=== PATIENT | male | born 1995 | race Caucasian/White ===

== ENCOUNTER 2019-09-13 14:45 | Emergency (ER) | payer OTHER, SELFPAY ==
[2019-09-13 15:07] VITALS: BP 124/78; PULSE 76; RESP 16; TEMP 36.6; O2SAT 98
--- NOTE | 2019-09-13 15:13 | ED.LOWEXIN ---
HPI - Extremity Injury (Lower) General Chief Complaint: Extremity Injury, Lower Stated Complaint: possible infected left great toe Time Seen by Provider: 09/13/19 15:14 Source: patient Mode of arrival: ambulatory Limitations: no limitations History of Present Illness HPI Narrative: Royal Helton is a 24 yo male with no PMH who is here with L great toe swelling to toe 3 days Related Data Allergies Allergy/AdvReac Type Severity Reaction Status Date / Time trimethoprim Allergy Unknown Verified 12/25/14 11:02 POLYTRIM EYE DROPS Allergy Uncoded 02/06/11 14:29 Review of Systems Review of Systems: Narrative: CONSTITUTIONAL: Denies fever, chills, sweats. EYES: Denies visual changes, redness, discharge. ENT: Denies rhinorrhea, congestion, sore throat, otalgia. CARDIOVASCULAR: Denies chest pain, palpitations, edema. RESPIRATORY: Denies dyspnea, wheezing, cough GASTROINTESTINAL: Denies abdominal pain, nausea, vomiting, diarrhea. GENITOURINARY: Denies dysuria, hematuria, abnormal discharge SKIN: Denies rash or itching. NEUROLOGIC: Denies numbness, or focal weakness. PSYCHIATRIC: Denies anxiety or depression. Great toe pain on left medial side, stubbed her toe and pulled loose skin, now is going PMFSH Family History Family History Other Diabetes mellitus High cholesterol Hypertension Social History Social History Smoking status: Never smoker Alcohol intake: current Comments At time of signature, I agree with nursing past medical, surgical, social and family history. There is no relevant family history pertinent to the presenting complaint. Exam Narrative: Exam Narrative: GENERAL: This is a well-nourished, well-developed patient, in mild distress. HEAD: normocephalic, atraumatic. EYES: Sclera clear/white. Vision is grossly intact. EARS: External ears normal, Hearing grossly intact. NOSE: External nose normal without nasal discharge, nares without redness, no rhinorrhea. THROAT: Mucous membranes moist, NECK: Neck supple, CARDIOVASCULAR: Regular rate and rhythm without murmurs, gallops, or rubs. RESPIRATORY: Clear to auscultation. Breath sounds equal bilaterally. No wheezes, rales, or rhonchi. GASTROINTESTINAL: Abdomen soft, SKIN: warm, intact with no suspicious lesions or rash, good texture and turgor. NEURO: awake, alert, and oriented to person, place and time. There were no obvious focal neurologic abnormalities. Steady gait EXTREMITIES: Normal range of motion. L great toe medial swelling, good cloration, tender to touch, no fluctuance BACK: Nontender without deformity Course Course Emergency Course: Start antibiotics and hydrocortisone cream Vital Signs Vital signs: Vital Signs Temperature 97.9 F 09/13/19 15:07 Pulse Rate 76 09/13/19 15:07 Respiratory Rate 16 09/13/19 15:07 Blood Pressure 124/78 09/13/19 15:07 Pulse Oximetry 98 09/13/19 15:07 Temperature 97.9 F 09/13/19 15:07 Pulse Rate 76 09/13/19 15:07 Respiratory Rate 16 09/13/19 15:07 Blood Pressure 124/78 09/13/19 15:07 Pulse Oximetry 98 09/13/19 15:07 MDM - Extremity Injury (Lower) Differential Diagnosis Differential diagnosis: Likely fracture of toe and other (Paronychia versus mild infection along toe) Discharge Plan Discharge Clinical Impression: Cellulitis of great toe of left foot Patient Disposition: Home, Self-Care Condition: Stable Instructions: Antibiotic Form, Paronychia (ED), Cellulitis (DC) Prescriptions: New cephalexin [Keflex] 500 mg capsule 500 mg PO Q8H Qty: 30 RF: 0 hydrocortisone 1 % cream 1 applic TOPICAL TID PRN (Reason: skin irritation) Qty: 14.2 RF: 0 Follow-up/Referrals: PHYSICIAN,SENIOR FINANCIAL ACCOUNTANT [Primary Care Provider] - Stand Alone Forms: Work/School Release IP Time of Disposition: 15:29 Discharge Date/Time: 09/13/19 15:33
== END 2019-09-13 15:33 | disposition home or self-care (01) ==
PROVIDERS: Emergency Provider Nurse Practitioner
DX: L03.032 Cellulitis of left toe (principal)
CPT/HCPCS: 99213; G0463

== ENCOUNTER 2020-05-06 14:48 | Emergency (ER) | payer OTHER, SELFPAY ==
[2020-05-06 15:06] VITALS: BP 134/77; PULSE 97; RESP 20; TEMP 37.2; O2SAT 100
--- NOTE | 2020-05-06 15:26 | ED.EAR ---
HPI - Ear Problem General Chief complaint: Ear Stated complaint: Ear ache Source: patient and RN notes reviewed Mode of arrival: ambulatory Limitations: no limitations History of Present Illness HPI Narrative: This is a 25-year-old white male who presented today with complaints of left ear pain patient also complains of generalized body aches with nasal decongestion that he has been experience for the last 4 days he did not take anything at home for symptoms. Today he did test positive for Covid patient was informed that he needs to remain quarantined for 10 days and anybody that has come in contact with him also needs to remain quarantine. The patient denies SOB, CP, palpitation, extremity numbness, lightheadedness, dizziness, constipation, diarrhea, chills, or fever. Patient will be treated for otitis media he will treat his Covid symptoms with [id number] cold medication Related Data Allergies Allergy/AdvReac Type Severity Reaction Status Date / Time trimethoprim Allergy Unknown Verified 12/25/14 11:02 POLYTRIM EYE DROPS Allergy Swelling Uncoded 05/06/20 15:03 Review of Systems Review of Systems: All systems reviewed & are unremarkable except as noted in HPI and below PMFSH Family History Family History Other Diabetes mellitus High cholesterol Hypertension Social History Social History Smoking status: Never smoker Alcohol intake: current Gender identity (if verbalized by the patient): Male Exam Narrative: Exam Narrative: GENERAL: This is a well-nourished, well-developed patient, in no apparent distress. HEAD: normocephalic, atraumatic. EYES: PERRL. Sclera clear/white. Vision is grossly intact. EARS: External ears normal, auditory canals edematous with erythema and without drainage, TMs cloudy without perforation. Hearing grossly intact. NOSE: External nose normal with no obvious nasal discharge, nares without redness, no rhinorrhea. THROAT: Mucous membranes moist, posterior pharynx clear. NECK: Neck supple, non-tender without lymphadenopathy, masses or thyromegaly. CARDIOVASCULAR: Regular rate and rhythm without murmurs, gallops, or rubs. RESPIRATORY: Clear to auscultation. Breath sounds equal bilaterally. No wheezes, rales, or rhonchi. GASTROINTESTINAL: Abdomen soft, non-tender, nondistended. Bowel sounds are active. No hepato-splenomegaly, or palpable masses. No guarding. SKIN: warm, intact with no suspicious lesions or rash, good texture and turgor. NEURO: awake, alert, and oriented to person, place and time. There were no obvious focal neurologic abnormalities. Steady gait EXTREMITIES: Normal range of motion. No edema. No calf tenderness. Negative Homans sign bilaterally. BACK: Nontender without deformity or crepitance. No flank tenderness. Course Course Emergency Course: Patient discharged with amoxicillin and instructed to stay quarantined due to a positive Covid also instructed to inform anyone that he came in contact with that they need to remain quarantine as well. And there is no need for them to be tested. They will still need to remain quarantine for 10 days Vital Signs Vital signs: Vital Signs Temperature 98.9 F 05/06/20 15:06 Pulse Rate 97 05/06/20 15:06 Respiratory Rate 20 05/06/20 15:06 Blood Pressure 134/77 05/06/20 15:06 Pulse Oximetry 100 05/06/20 15:06 Temperature 98.9 F 05/06/20 15:06 Pulse Rate 97 05/06/20 15:06 Respiratory Rate 20 05/06/20 15:06 Blood Pressure 134/77 05/06/20 15:06 Pulse Oximetry 100 05/06/20 15:06 Medical Decision Making Differential Diagnosis Differential Diagnosis: Covid versus otitis media versus Vital Signs Vital Signs: Vital Signs Temperature 98.9 F 05/06/20 15:06 Pulse Rate 97 05/06/20 15:06 Respiratory Rate 05/06/20 15:06 Blood Pressure 134/77 05/06/20 15:06 Pulse Oximetry 10
== END 2020-05-06 15:28 | disposition home or self-care (01) ==
PROVIDERS: Emergency Provider Nurse Practitioner
DX: U07.1 COVID-19 (principal); H66.90 Otitis media, unspecified, unspecified ear
CPT/HCPCS: 87081; 87426; 87880; 99213; C9803; G0463

== ENCOUNTER 2025-02-06 12:48 | Emergency (ER) | payer BC, SELFPAY ==
[2025-02-06 12:52] VITALS: BP 152/72; PULSE 62; RESP 17; TEMP 36.2; O2SAT 100
--- NOTE | 2025-02-06 14:41 | ED.GENADULT ---
HPI - General Adult General Chief complaint: Unspecified Stated complaint: Stung by yellow jackets x6- Time Seen by Provider: 02/06/25 13:51 History of Present Illness HPI narrative: Royal Helton is a 29-year-old male who presents today after being stung by a about 6 yellow jackets. He states that he was mowing the grass and did realize there is an S there he was time to the top of his head his wrist as belly. He took 50 mg Benadryl at around 12:30 p.m. and Motrin for the pain. He states that he still having pain to the stains that they are burning but denies any shortness of breath denies any swelling to his throat denies any difficulty breathing or swallowing. Related Data Allergies Allergy/AdvReac Type Severity Reaction Status Date / Time trimethoprim Allergy Unknown Unknown Verified 02/06/25 12:50 POLYTRIM EYE DROPS Allergy Swelling Uncoded 05/06/20 15:03 Review of Systems Review of Systems: All systems reviewed & are unremarkable except as noted in HPI and below PMFSH Family History Family History Other Diabetes mellitus High cholesterol Hypertension Social History Social History Smoking status: Never smoker Alcohol intake: current Gender identity (if verbalized by the patient): Male Exam Narrative: GENERAL: Well-appearing, well-nourished, and in no acute distress. HEAD: Normocephalic, atraumatic. EYES: PERRLA and EOMI. ENT: Nares clear, no rhinorrhea or epistaxis. Mucous membranes moist. Oropharynx without tonsillar hypertrophy exudate or other lesions. NECK: Supple. No adenopathy or masses. No carotid bruits or JVD CHEST: Clear to auscultation. No respiratory distress. No wheezes rales or rhonchi HEART: Regular rate and rhythm. No murmur heard. Normal peripheral pulses. ABDOMEN: Soft, nontender, nondistended, normal active bowel sounds. EXTREMITIES: Normal range of motion. No edema. SKIN: 5-6 small sites of raised papules slight erythema no moderate swelling cellulitis noted no drainage NEURO: No focal deficits. Alert and oriented x3. PSYCH: Normal mood and affect. Course Vital Signs Vital signs: Vital Signs Temperature 36.2 C L 02/06/25 12:52 Pulse Rate 62 02/06/25 12:52 Respiratory Rate 17 02/06/25 12:52 Blood Pressure 152/72 H 02/06/25 12:52 Pulse Oximetry 100 02/06/25 12:52 Oxygen Delivery Room Air 02/06/25 12:52 Temperature 36.2 C L 02/06/25 12:52 Pulse Rate 62 02/06/25 12:52 Respiratory Rate 17 02/06/25 12:52 Blood Pressure 152/72 H 02/06/25 12:52 Pulse Oximetry 100 02/06/25 12:52 Oxygen Delivery Room Air 02/06/25 12:52 Medical Decision Making MDM Narrative Medical decision making narrative: 29-year-old male who presents after being stung about 6 times by about yellow jackets, he has a few areas to the top of his head right rest and his abdomen. He was able to take 50 mg of Benadryl afterwards he states he still having pain to the sites localize. He denies known allergic reaction to the yellow jackets. On exam there is no evidence for anaphylaxis, lung sounds are clear throughout no swelling in throat her airway are tongue. No your neck area for swelling noted. Plan to give the steroids and pain control while patient is here patient be discharged home with continued cetirizine and prednisone and triamcinolone cream for the topical treatment. Patient provided with strict return precautions if he does develop any shortness of breath, throat swelling, difficulty breathing or any other concerns return to the emergency department. Patient verbalizes understanding and agrees with plan of care. Medical Records Medical records reviewed: Yes I reviewed the external patient's medical records. Vital Signs Vital Signs: Vital Signs Temperature 36.2 C L 02/06/25 12:52 Pulse Rate 62 02/06/25 12:52 Respiratory Rate 17 02/06/25 12:52 Blood Pressure 152/72 H 02/06/25 12:52 Pulse Oximetry 100 02/06/25 12:52 Oxygen Delivery Room Air 02/06/25 12:52 Temperature 36.2 C L 02/06/25 12:52 Pulse Rate 62 02/06/25 12:52 Respiratory Rate 17 02/06/25 12:52 Blood Pressure 152/72 H 02/06/25 12:52 Pulse Oximetry 100 02/06/25 12:52 Oxygen Delivery Room Air 02/06/25 12:52 Vitals reviewed Discharge Plan Discharge Clinical Impression: Stings, insect Qualifiers: Encounter type: initial encounter Injury intent: accidental or unintentional Qualified Code(s): T63.481A - Toxic effect of venom of other arthropod, accidental (unintentional), initial encounter Patient Disposition: Home Condition: Stable Instructions: Antibiotic Form, Insect Bite or Sting (ED) Additional Instructions: Continue to take the cetirizine once daily for the next couple weeks. Continue to take the prednisone once daily for 5 more days. You may start using the triamcinolone topical cream to affected areas to help with the reaction. You may also take Benadryl at bedtime for continued symptoms if needed. Please follow-up with your primary care doctor in 1 week. If you do develop any new or worsening symptoms such as throat swelling, difficulty breathing, difficulty swallowing, shortness of breath increased swelling then please return to the emergency department. Patient Language: Bengali Prescriptions: New cetirizine 10 mg tablet 10 mg PO DAILY PRN (Reason: allergy symptoms) Qty: 30 0RF triamcinolone acetonide 0.1 % cream 1 applic topical BID Qty: 80 2RF prednisone 50 mg tablet 50 mg PO DAILY 5 Days Qty: 5 0RF No Action amoxicillin 500 mg capsule 500 mg PO Q8H 7 Days Qty: 21 0RF Follow-up/Referrals: UNKNOWN,DOCTOR [Non-Staff] Time of Disposition: 14:51
[2025-02-06] MEDS: HYDROcodone/acetaminophen (*CRX) 5-325 MG TABLET 1 TAB PO (14:46)
== END 2025-02-06 15:38 | disposition home or self-care (01) ==
LOC: ANHED 14:57
PROVIDERS: Emergency Provider Nurse Practitioner Family; PCP Internal Medicine
DX: T63.461A Toxic effect of venom of wasps, accidental (unintentional), initial encounter (principal)
CPT/HCPCS: 99283; A9270; J7512